=== PATIENT | male | born 1955 | race Caucasian/White ===

== ENCOUNTER 2016-12-18 15:28 | Inpatient (IN) | payer OTHER ==
[~2016-12-18] VITALS: Ht 172.7 cm; Wt 60.3 kg
[~2016-12-18 15:28] MED LIST: CYMBALTA30 MG PO; Diabeta,Micronase PO; Feosol PO; Flomax PO; HUMULIN NP100 UNIT/1 SC; OXYCODONE5 MG PO; SENOKOT S,PE1 TABLET PO; oxyCODONE PO
[2016-12-18 16:18] LABS: CARBON DIOXIDE (BICARBONATE) 6.4 MEQ/L (20-31); EOSINOPHIL (%) 0.1 % (0-5); HEMATOCRIT 49.9 % (38.0-50.0); IMMATURE GRANULOCYTE (%) 0.8 % (0.0-0.7); IMMATURE GRANULOCYTE COUNT 0.1 K/uL; INSTRUMENT ABS NEUTROPHIL CT 13.9 K/uL; LYMPHOCYTE COUNT 0.4 K/uL (1.0-2.8); MCH 32.1 PG (29.0-34.0); MCHC 33.5 G/DL (30.0-36.0); MCV 95.8 FL (86-99); MEAN PLAT.VOLUME 9.7 uM^3 (9.0-12.4); MONOCYTE (%) 7.1 % (3-12); MONOCYTE COUNT 1.1 K/uL (0-0.8); NEUTROPHIL (%) 89.5 % (45-76); NEUTROPHIL COUNT 13.9 K/uL (1.8-6.4); PLATELET COUNT 361 K/uL (156-360); RBC DIS.WIDTH-CV 13.7 % (11.8-14.6); RED BLOOD COUNT 5.21 M/uL (4.00-5.50); WHITE BLOOD COUNT 15.5 K/uL (4.1-10.2)
[2016-12-18 16:27] LABS: CHLORIDE 83 mEq/L (99-109); POTASSIUM 5.3 mEq/L (3.7-5.4); SODIUM 127 mEq/L (136-147)
[2016-12-18 16:30] LABS: ANION GAP 40 MEQ/L (2-14)
[2016-12-18 16:31] LABS: TOTAL BILIRUBIN 0.7 mg/dL (0.0-1.0)
[2016-12-18 16:33] LABS: ALKALINE PHOSPHATASE 113 IU/L (3-129); GFR ESTIMATE (CALCULATED) 18 mL/min/
[2016-12-18 16:34] LABS: UREA NITROGEN (BUN) 77 mg/dL (9-23)
[2016-12-18 16:36] LABS: LIPASE 55 U/L (1.0-51.0)
[2016-12-18 16:42] LABS: GLUCOSE 863 mg/dL (70-99)
[2016-12-18] MEDS ORDERED: NOVOLOG PE100 UNITS/ SC (17:02)
[2016-12-18] MEDS ORDERED: LISINOPRIL2.5 MG PO (17:03)
[2016-12-18] MEDS ORDERED: GLIPIZIDE10 MG PO (17:03)
[2016-12-18] MEDS ORDERED: METFORMIN HCL1000 MG PO (17:04)
[2016-12-18] MEDS ORDERED: INVOKANA100 MG PO (17:04)
[2016-12-18] MEDS ORDERED: ATORVASTATIN CA40 MG PO (17:04)
[2016-12-18 17:33] LABS: ADD MIUA? YES; BILIRUBIN NEGATIVE; BLOOD MODERATE; COLOR STRAW ((YELLOW)); GLUCOSE (STRIP) >=500; KETONES 20; LEUKOCYTES NEGATIVE; NITRITE NEGATIVE; PROTEIN (STRIP) 30; SPECIFIC GRAVITY 1.018 (1.000-1.030); UROBILINOGEN 0.2 MG/DL (0.2-1.0)
[2016-12-18 17:41] LABS: AMPHETAMINE NEGATIVE (500 ng/mL); BARBITURATES NEGATIVE (200 ng/mL); BENZODIAZEPINES NEGATIVE (150 ng/mL); COCAINE NEGATIVE (150 ng/mL); INTERNAL CONTROLS VALID? YES; METHADONE NEGATIVE (200 ng/mL); METHAMPHETAMINE NEGATIVE (500 ng/mL); OPIATES (MORPHINE) NEGATIVE (100 ng/mL); OXYCODONE NEGATIVE (100 ng/mL); PHENCYCLIDINE NEGATIVE (25 ng/mL); PROPOXYPHENE NEGATIVE (300 ng/mL); THC CANNABINOIDS NEGATIVE (50 ng/mL); TRICYCLIC ANTIDEPRESSANTS NEGATIVE (300 ng/mL)
[2016-12-18 17:53] LABS: BACTERIA NONE SEEN /HPF; EPITHELIAL CELLS NONE SEEN /HPF; MUCUS TRACE /LPF; RED BLOOD CELLS 0-5 /HPF (0-5); UCUL ADDED? NO; WHITE BLOOD CELLS 0-5 /HPF (0-5)
[2016-12-18 19:05] LABS: GLUCOSE 643 mg/dL (70-99)
[2016-12-18 20:18] VITALS: BP 110/56
[2016-12-18 20:30] VITALS: BP 105/61
[2016-12-18 21:00] VITALS: BP 104/60
[2016-12-18 21:12] LABS: Estimated Average Glucose 243 mg/dL (70-123); HEMOGLOBIN A1c (GLYCOHEMOGLOB) 10.1 % HGB (Below 5.7)
[2016-12-18 21:21] LABS: ANION GAP 22 MEQ/L (2-14); CHLORIDE 100 MEQ/L (99-109); MAGNESIUM 2.4 mg/dl (1.3-2.7); SAMPLE HEMOLYSIS CHECK 0; SAMPLE ICTERIC CHECK 0; SAMPLE LIPEMIA CHECK 0
[2016-12-18 21:25] LABS: POTASSIUM 3.9 MEQ/L (3.7-5.4); SODIUM 138 MEQ/L (136-147)
[2016-12-18 21:26] LABS: GLUCOSE 372 mg/dL (70-99); UREA NITROGEN (BUN) 62 mg/dL (9-23)
[2016-12-18 21:31] LABS: GFR ESTIMATE (CALCULATED) 37 mL/min/
[2016-12-18 21:50] LABS: METH RESISTANT S AUREUS PCR NEGATIVE (NEGATIVE); PROBE CHECK PASS; SPECIMEN PROCESSING CONTROL PASS
[2016-12-18 22:00] VITALS: BP 98/42
[2016-12-18 23:00] VITALS: BP 99/46
[2016-12-19] VITALS (17 sets, daily range): BP systolic 75–107; BP diastolic 40–69
[2016-12-19 00:56] LABS: POTASSIUM 4.2 mEq/L (3.7-5.4); SODIUM 143 mEq/L (136-147)
[2016-12-19 00:57] LABS: MAGNESIUM 2.2 mg/dL (1.3-2.7)
[2016-12-19 01:00] LABS: ANION GAP 14 MEQ/L (2-14); CHLORIDE 110 mEq/L (99-109); GLUCOSE 172 mg/dL (70-99)
[2016-12-19 01:02] LABS: GFR ESTIMATE (CALCULATED) 39 mL/min/
[2016-12-19 01:03] LABS: UREA NITROGEN (BUN) 49 mg/dL (9-23)
[2016-12-19 01:47] LABS: POINT-OF-CARE METER ID UU13113731
[2016-12-19 02:48] LABS: POINT-OF-CARE METER ID UU13113731
[2016-12-19 03:45] LABS: POINT-OF-CARE METER ID UU13113731
[2016-12-19 04:46] LABS: POINT-OF-CARE METER ID UU13113731
[2016-12-19 05:44] LABS: POINT-OF-CARE METER ID UU13113731
[2016-12-19 06:13] LABS: ANION GAP 10 MEQ/L (2-14); CHLORIDE 109 MEQ/L (99-109); GFR ESTIMATE (CALCULATED) > 59 mL/min/; GLUCOSE 168 mg/dL (70-99); MAGNESIUM 2.2 mg/dl (1.3-2.7); SAMPLE HEMOLYSIS CHECK 0; SAMPLE ICTERIC CHECK 0; SAMPLE LIPEMIA CHECK 0; SODIUM 143 MEQ/L (136-147); UREA NITROGEN (BUN) 38 mg/dL (9-23)
[2016-12-19 06:38] LABS: HEMATOCRIT 34.8 % (38.0-50.0); MCH 32.3 PG (29.0-34.0); MCHC 35.9 G/DL (30.0-36.0); MEAN PLAT.VOLUME 9.5 uM^3 (9.0-12.4); RBC DIS.WIDTH-CV 13.2 % (11.8-14.6); RBC DIS.WIDTH-SD 43.8 % (39-53)
[2016-12-19 06:41] LABS: POINT-OF-CARE METER ID UU13113731
[2016-12-19 07:07] LABS: MCV 89.9 FL (86-99); PLATELET COUNT 183 K/uL (156-360); RED BLOOD COUNT 3.87 M/uL (4.00-5.50); WHITE BLOOD COUNT 7.5 K/uL (4.1-10.2)
[2016-12-19 08:16] LABS: POINT-OF-CARE METER ID UU13113731
[2016-12-19 08:55] LABS: ANION GAP 5 MEQ/L (2-14); CHLORIDE 111 MEQ/L (99-109); GFR ESTIMATE (CALCULATED) > 59 mL/min/; GLUCOSE 172 mg/dL (70-99); MAGNESIUM 2.2 mg/dl (1.3-2.7); POTASSIUM 3.8 MEQ/L (3.7-5.4); SAMPLE HEMOLYSIS CHECK 0; SAMPLE ICTERIC CHECK 0; SAMPLE LIPEMIA CHECK 0; SODIUM 142 MEQ/L (136-147); UREA NITROGEN (BUN) 31 mg/dL (9-23)
[2016-12-19 08:57] LABS: POINT-OF-CARE METER ID UU13113731
[2016-12-19 10:21] LABS: POINT-OF-CARE METER ID UU14174217
[2016-12-19 12:08] LABS: POINT-OF-CARE METER ID UU13113731
[2016-12-19 12:35] LABS: ANION GAP 5 MEQ/L (2-14); CHLORIDE 111 MEQ/L (99-109); GFR ESTIMATE (CALCULATED) > 59 mL/min/; GLUCOSE 186 mg/dL (70-99); MAGNESIUM 2.2 mg/dl (1.3-2.7); POTASSIUM 3.6 MEQ/L (3.7-5.4); SAMPLE HEMOLYSIS CHECK 0; SAMPLE ICTERIC CHECK 0; SAMPLE LIPEMIA CHECK 0; SODIUM 141 MEQ/L (136-147); UREA NITROGEN (BUN) 24 mg/dL (9-23)
[2016-12-19 12:59] LABS: POINT-OF-CARE METER ID UU14100415
[2016-12-19 12:59] LABS: POINT-OF-CARE METER ID UU14100415
[2016-12-19 12:59] LABS: POINT-OF-CARE METER ID UU14100415
[2016-12-19 13:01] LABS: POINT-OF-CARE METER ID UU14100415
[2016-12-19 16:36] LABS: ANION GAP 6 MEQ/L (2-14); CHLORIDE 110 MEQ/L (99-109); MAGNESIUM 2.1 mg/dl (1.3-2.7); POTASSIUM 3.9 MEQ/L (3.7-5.4); SAMPLE HEMOLYSIS CHECK 0; SAMPLE ICTERIC CHECK 0; SAMPLE LIPEMIA CHECK 0; SODIUM 143 MEQ/L (136-147)
[2016-12-19 16:42] LABS: GFR ESTIMATE (CALCULATED) > 59 mL/min/; GLUCOSE 132 mg/dL (70-99); UREA NITROGEN (BUN) 20 mg/dL (9-23)
[2016-12-19 18:01] LABS: POINT-OF-CARE METER ID UU13113731
[2016-12-19 20:32] LABS: ANION GAP 6 MEQ/L (2-14); CHLORIDE 110 MEQ/L (99-109); POTASSIUM 3.7 MEQ/L (3.7-5.4); SAMPLE HEMOLYSIS CHECK 0; SAMPLE ICTERIC CHECK 0; SAMPLE LIPEMIA CHECK 0; SODIUM 141 MEQ/L (136-147)
[2016-12-19 20:38] LABS: GFR ESTIMATE (CALCULATED) > 59 mL/min/; GLUCOSE 175 mg/dL (70-99); UREA NITROGEN (BUN) 17 mg/dL (9-23)
[2016-12-19 22:04] LABS: POINT-OF-CARE METER ID UU13113731
[2016-12-20] VITALS (21 sets, daily range): BP systolic 89–121; BP diastolic 43–67
[2016-12-20 06:38] LABS: HEMATOCRIT 33.7 % (38.0-50.0); MCH 32.2 PG (29.0-34.0); MCHC 34.7 G/DL (30.0-36.0); MCV 92.8 FL (86-99); RBC DIS.WIDTH-CV 13.3 % (11.8-14.6); RBC DIS.WIDTH-SD 45.5 % (39-53); RED BLOOD COUNT 3.63 M/uL (4.00-5.50); WHITE BLOOD COUNT 6.6 K/uL (4.1-10.2)
[2016-12-20 07:25] LABS: PLAT.SUFFICIENCY DECREASED; PLATELET CLUMPS PRESENT - PLATELET COUNTS APPEARS DECREASED; PLATELET COUNT UNABLE TO REPORT K/uL (156-360)
[2016-12-20 08:12] LABS: POINT-OF-CARE METER ID UU13113731
[2016-12-20 10:31] LABS: TROP-I INTERPRETATION POSITIVE; TROPONIN-I 3.14 ng/mL (0.0-0.30)
[2016-12-20] MEDS ORDERED: BASAGLAR K100 UNIT/1 SC (11:25)
[2016-12-20 12:08] LABS: POINT-OF-CARE METER ID UU13113731
[2016-12-20 13:46] LABS: TROP-I INTERPRETATION POSITIVE; TROPONIN-I 2.42 ng/mL (0.0-0.30)
[2016-12-20 15:23] LABS: POINT-OF-CARE METER ID UU13113696
[2016-12-20 15:29] LABS: PROTHROMBIN TIME 10.3 (9.2-11.2); PTT 29.3 (25-32)
[2016-12-20 16:45] LABS: POINT-OF-CARE METER ID UU14174217
[2016-12-20 17:45] LABS: TROP-I INTERPRETATION POSITIVE; TROPONIN-I 2.57 ng/mL (0.0-0.30)
[2016-12-20 22:22] LABS: POINT-OF-CARE METER ID UU14174217; POINT-OF-CARE USER ID RADDRS44
[2016-12-21 03:30] VITALS: BP 110/63
[2016-12-21 07:25] LABS: HEMATOCRIT 32.4 % (38.0-50.0); MCH 32.2 PG (29.0-34.0); MCHC 34.6 G/DL (30.0-36.0); MCV 93.1 FL (86-99); MEAN PLAT.VOLUME 9.8 uM^3 (9.0-12.4); PLATELET COUNT 98 K/uL (156-360); RBC DIS.WIDTH-CV 13.2 % (11.8-14.6); RBC DIS.WIDTH-SD 44.9 % (39-53); RED BLOOD COUNT 3.48 M/uL (4.00-5.50); WHITE BLOOD COUNT 5.7 K/uL (4.1-10.2)
[2016-12-21 08:00] VITALS: BP 111/61
[2016-12-21 09:19] LABS: POINT-OF-CARE METER ID UU14174216
[2016-12-21 11:38] LABS: POINT-OF-CARE METER ID UU14174216
[2016-12-21 12:00] VITALS: BP 100/59
[2016-12-21 16:03] VITALS: BP 90/54
[2016-12-21 21:25] LABS: POINT-OF-CARE METER ID UU13113725
[2016-12-22 00:39] VITALS: BP 116/68
[2016-12-22 05:51] LABS: POINT-OF-CARE METER ID UU13113725
[2016-12-22 06:17] LABS: HEMATOCRIT 35.3 % (38.0-50.0); MCH 32.3 PG (29.0-34.0); MCHC 34.8 G/DL (30.0-36.0); MCV 92.7 FL (86-99); PLATELET COUNT 97 K/uL (156-360); RBC DIS.WIDTH-CV 12.9 % (11.8-14.6); RBC DIS.WIDTH-SD 44.1 % (39-53); RED BLOOD COUNT 3.81 M/uL (4.00-5.50); WHITE BLOOD COUNT 5.6 K/uL (4.1-10.2)
[2016-12-22 06:51] LABS: ANION GAP 8 MEQ/L (2-14); CHLORIDE 105 MEQ/L (99-109); GFR ESTIMATE (CALCULATED) > 59 mL/min/; GLUCOSE 247 mg/dL (70-99); POTASSIUM 3.7 MEQ/L (3.7-5.4); SAMPLE HEMOLYSIS CHECK 0; SAMPLE ICTERIC CHECK 0; SAMPLE LIPEMIA CHECK 0; SODIUM 141 MEQ/L (136-147); UREA NITROGEN (BUN) 8 mg/dL (9-23)
[2016-12-22 07:27] VITALS: BP 107/65
[2016-12-22] MEDS ORDERED: ASPIR-LOW81 MG PO (09:15)
[2016-12-22] MEDS ORDERED: LOPRESSOR25 MG PO (09:15)
[2016-12-22] MEDS ORDERED: SPIRIVA1 INHALATI IH (09:30)
[2016-12-22] MEDS ORDERED: VENTOLIN HFA18 GM IH (09:30)
[2016-12-22] MEDS ORDERED: BASAGLAR K100 UNIT/1 SC (09:31)
[2016-12-22] MEDS ORDERED: NOVOLOG PE100 UNITS/ SC (09:31)
[2016-12-22] MEDS ORDERED: INCRUSE ELLI62.5 MCG IH (11:31)
[2016-12-25 11:22] LABS: POINT-OF-CARE METER ID UU14174216
== END 2016-12-22 12:24 | disposition home or self-care (01) | DRG 637 ==
LOC: EME → EDBD 15:28 → EME 15:28 → 4WEST 17:19 → EDOF 17:19 → 4WEST 20:13 → 4EAST 12-20 22:54 → 5EAST 12-21 18:17
PROVIDERS: Emergency Medicine; Hospitalist; Internal Medicine; Internal Medicine Cardiovascular Disease; Internal Medicine Interventional Cardiology; Internal Medicine Nephrology
PROC: 4A023N7 Measurement of Cardiac Sampling and Pressure, Left Heart, Percutaneous Approach (ICD-10-PCS; principal; 2016-12-20)
PROC: B2151ZZ Fluoroscopy of Left Heart using Low Osmolar Contrast (ICD-10-PCS; principal; 2016-12-20)
PROC: B2111ZZ Fluoroscopy of Multiple Coronary Arteries using Low Osmolar Contrast (ICD-10-PCS; principal; 2016-12-20)
DX: E13.10 Other specified diabetes mellitus with ketoacidosis without coma (principal); G93.41 Metabolic encephalopathy; N17.9 Acute kidney failure, unspecified; I21.4 Non-ST elevation (NSTEMI) myocardial infarction; D64.9 Anemia, unspecified; F17.210 Nicotine dependence, cigarettes, uncomplicated; D75.1 Secondary polycythemia; D47.3 Essential (hemorrhagic) thrombocythemia; E86.1 Hypovolemia; E78.5 Hyperlipidemia, unspecified; I25.10 Atherosclerotic heart disease of native coronary artery without angina pectoris; I10 Essential (primary) hypertension; J43.9 Emphysema, unspecified; Z79.4 Long term (current) use of insulin; Z91.14 Patient's other noncompliance with medication regimen
CPT/HCPCS: 70450; 71010; 80048; 80048 91; 80053; 81003; 82565; 82803; 82948; 83036; 83690; 83735; 84100; 84484; 84520; 84999; 85025; 85027; 85049; 85610; 85730; 87641; 93005; 94799; 99281; 99285; C1769; C1887; J1644; J1815; J2250; J2405; J2765; J3010; J3480; J7030; J7042; J7050; J7120